=== PATIENT | female | born 1970 | race African-American/Black ===

== ENCOUNTER 2018-03-21 22:10 | Emergency (ER) | payer OTHER, MEDICAID ==
[~2018-03-21] VITALS: Ht 154.9 cm; Wt 49.9 kg
[~2018-03-21 22:10] MED LIST: CYCLOBENZAPRINE10 MG ORAL; IBUPROFEN600 MG ORAL; NKM
[2018-03-21 22:41] VITALS: BP 129/61
[2018-03-21] MEDS ORDERED: Norco 5mg/325mg tab ORAL ONE (22:45)
[2018-03-21] MEDS ORDERED: IBUPROFEN600 MG ORAL (23:06)
--- NOTE | 2018-03-21 23:07 | Emergency Room Report ---
History of Present Illness General Chief Complaint: Upper Extremity Injury Source: Patient Present Illness HPI Is a 48-year-old female who is right-hand dominant. She presents with chief complaint of bilateral hand pain. She was at work this morning when she open a dryer door and the glass is popped out. She grabbed onto it to prevent it from breaking. It was hot but was not burning. She has some pain bilateral hand. She was able to continue working until tonight with became more severe and crampy. It swollen. Pain is 9 out of 10. Worse with movement. No other injury. Did not pass out. Allergies: Coded Allergies: Lettuce (Verified Allergy, Unknown, 03/09/16) Patient History Past Medical History: see triage record, old chart reviewed Past Surgical History: other Pertinent Family History: none Social History: Denies: smoking Last Menstrual Period: UNK/5 YEARS AGO Now: No Immunizations: other Reviewed Nursing Documentation: PMH: Agreed; PSxH: Agreed Nursing Documentation-PMH Past Medical History: No Stated History Review of Systems Eye: Denies: eye pain, blurred vision ENT: Denies: ear pain, nose congestion, throat swelling Respiratory: Denies: cough, shortness of breath Cardiovascular: Denies: chest pain, palpitations Gastrointestinal: Denies: abdominal pain, diarrhea, nausea, vomiting Musculoskeletal: Reports: joint pain, joint swelling; Denies: back pain Skin: Denies: rash Neurological: Denies: headache, numbness Endocrine: Denies: increased thirst, increased urine Hematologic/Lymphatic: Denies: easy bruising All Other Systems: negative except mentioned in HPI Physical Exam Vital Signs Date Time Temp Pulse Resp B/P (MAP) Pulse Ox O2 Delivery O2 Flow Rate FiO2 03/21/18 22:21 97.8 62 16 129/61 100 Room Air 97.9 vitals normal Sp02 EP Interpretation: reviewed, normal General Appearance: well appearing, no apparent distress, alert Head: normocephalic, atraumatic Eyes: bilateral eye PERRL, bilateral eye EOMI ENT: hearing grossly normal, normal pharynx Neck: full range of motion, supple, no meningismus Respiratory: chest non-tender, lungs clear, normal breath sounds Cardiovascular #1: regular rate, rhythm, no murmur Gastrointestinal: normal bowel sounds, non tender, no mass, no organomegaly, no bruit, non-distended Musculoskeletal: back normal, gait/station normal, normal range of motion, other - Bilateral hand: She has tenderness to the joints of each fingers. Some mild edema. When I try to move him it hurts. No redness. No deformity. Sensation normal. Neurologic: alert, oriented x3 Psychiatric: mood/affect normal Skin: warm/dry Medical Decision Making Diagnostic Impression: Primary Impression: Arthralgia of both hands ER Course Issue with bilateral hand pain. I see no deformity to indicate fracture dislocation. No need for x-ray. We'll discharge home. Last Vital Signs Date Time Temp Pulse Resp B/P (MAP) Pulse Ox O2 Delivery O2 Flow Rate FiO2 03/21/18 22:51 97.9 03/21/18 22:41 62 16 129/61 100 Room Air Status: improved Disposition: HOME, SELF-CARE Condition: Stable Scripts Ibuprofen* (MOTRIN*) 600 Mg Tablet 600 MG ORAL THREE TIMES A DAY, #30 TAB 0 Refills Prov: PIERRE ALLEN M.D. 03/21/18 Additional Instructions: Follow-up with your doctor in 7 days. Return if worse. PIERRE ALLEN M.D. Mar 21, 2018 23:07
== END 2018-03-21 23:15 | disposition home or self-care (01) ==
LOC: EMR 23:15
DX: M25.542 Pain in joints of left hand (principal); M25.541 Pain in joints of right hand
CPT/HCPCS: 99283